=== PATIENT | male | born 1970 ===

== ENCOUNTER 2017-03-04 19:54 | Observation (INO) | payer SELFPAY ==
[2017-03-04 20:03] VITALS: RESP 16; TEMP 98.1
--- NOTE | 2017-03-04 20:08 | ED PDOC ---
HPI: Psych/Substance Abuse Time Seen by Provider: 03/04/17 19:58 Chief Complaint (Nursing): Alcohol Ingestion History Per: EMS Additional Complaint(s): Pt. found outside with unsteady gait. Admits to drinking 2 margaritas. Offers no complaints. Denies trauma, fall. Past Medical History Reviewed: Historical Data, Nursing Documentation, Vital Signs Vital Signs: Last Vital Signs Temp 98.1 F 03/04/17 20:01 Pulse 74 03/04/17 20:01 Resp 16 03/04/17 20:01 BP 144/84 03/04/17 20:01 Pulse Ox 100 03/04/17 20:01 - Family History Family History: States: No Known Family Hx - Allergies Allergies/Adverse Reactions: Allergies Allergy/AdvReac Type Severity Reaction Status Date / Time No Known Allergies Allergy Verified 03/04/17 20:00 Review of Systems ROS Statement: Except As Marked, All Systems Reviewed And Found Negative Physical Exam - Reviewed Nursing Documentation Reviewed: Yes Vital Signs Reviewed: Yes - Physical Exam Appears: Positive for: Well, Non-toxic, No Acute Distress Head Exam: Positive for: ATRAUMATIC, NORMAL INSPECTION, NORMOCEPHALIC Skin: Positive for: Normal Color, Warm. Negative for: Rash Eye Exam: Positive for: EOMI, Normal appearance, PERRL ENT: Positive for: Normal ENT Inspection Neck: Positive for: Normal, Painless ROM Cardiovascular/Chest: Positive for: Regular Rate, Rhythm Respiratory: Positive for: CNT, Normal Breath Sounds Gastrointestinal/Abdominal: Positive for: Normal Exam, Bowel Sounds, Soft. Negative for: Tenderness Back: Positive for: Normal Inspection Extremity: Positive for: Normal ROM Neurologic/Psych: Positive for: Alert, Oriented, Gait (steady), Other (slurred speech; AOB). Negative for: Aphasia, Facial Droop - Laboratory Results Result Diagrams: 03/04/17 20:16 03/04/17 20:16 - ECG O2 Sat by Pulse Oximetry: 100 ED OBSERVATION Discharge: Yes Date of observation admission: 03/04/17 Time of observation admission: 20:05 - Observation admission statement Patient is being placed in observation because:: ETOH - Progress Note Progress Note: 03/04/17 20:05 FSBS: 90 03/04/17 22:41 Awake and in no distress. Resting comfortably. 03/04/17 23:55 Pt. states he will take a taxi home. No slurred speech. Gait steady unassisted. Disposition - Clinical Impression Clinical Impression: Alcohol intoxication - Disposition Disposition: Routine/Home Disposition Time: 00:00 Condition: IMPROVED
[2017-03-04 20:21] LABS: BASO % 0.6 % (0.0-2.0); EOS # 0.2 K/uL (0.0-0.7); EOS % 1.8 % (0.0-4.0); HEMATOCRIT 46.4 % (35.0-51.0); LYMPH % 34.8 % (20.0-40.0); MEAN CELL VOLUME 88.4 fl (80.0-94.0); MEAN CORPUSCULAR HEMOGLOBIN 29.6 pg (27.0-31.0); MEAN CORPUSCULAR HGB CONC 33.5 g/dL (33.0-37.0); MEAN PLATELET VOLUME 8.9 fl (7.2-11.7); MONO # 0.8 K/uL (0.0-0.8); MONO % 9.2 % (0.0-10.0); NEUT # 4.7 K/uL (1.8-7.0); NEUT % 53.6 % (50.0-75.0); NRBC % 0.1 % (0.0-0.0); RED CELL DISTRIBUTION WIDTH 13.1 % (11.5-14.5); WHITE BLOOD COUNT 8.7 K/uL (4.8-10.8)
[2017-03-04 20:33] LABS: ALB/GLOB RATIO 1.5 (1.0-2.1); ALCOHOL SERUM 237 mg/dl (0-10); ALKALINE PHOSPHATASE 51 U/L (38-126); ALT/SGPT 47 U/L (21-72); AST/SGOT 52 U/L (17-59); BILIRUBIN,TOTAL 0.5 mg/dl (0.2-1.3); BLOOD UREA NITROGEN 16 mg/dl (9-20); CALCIUM 9.8 mg/dL (8.4-10.2); CARBON DIOXIDE 20 mmol/L (22-30); CHLORIDE 108 mmol/L (98-107); GFR AFRICAN-AMERICAN > 60; GLUCOSE,RANDOM 90 mg/dL (75-110); POTASSIUM 3.7 MMOL/L (3.6-5.0); SODIUM 144 mmol/l (132-148); TOTAL PROTEIN 8.6 G/DL (6.3-8.2)
[2017-03-04 23:57] VITALS: BP 122/78; PULSE 94; O2SAT 98
== END 2017-03-04 23:59 | disposition home or self-care (01) ==
LOC: H.ER 19:54 → H.EROBSV 20:05
PROVIDERS: ADMIT Emergency Medicine; ATTEND Emergency Medicine
DX: F10.129 Alcohol abuse with intoxication, unspecified (principal); Y90.7 Blood alcohol level of 200-239 mg/100 ml
CPT/HCPCS: 80053; 82948; 85025; 99282; G0378; G0480